=== PATIENT | female | born 1985 | race Caucasian/White ===

== ENCOUNTER 2018-07-23 15:39 | Observation (INO) ==
--- NOTE | 2018-07-23 16:11 | Emergency Department Note ---
Disposition Clinical Impression: Transaminitis, Epigastric pain Disposition: Admitted As Inpatient Condition: Good Referrals: Neymar Coronel MD [Primary Care Provider] - Forms: ED Satisfaction Letter, Work/School Release Time of Disposition: 18:46 General Adult HPI - General Chief complaint: ED Abdominal Pain Stated complaint: ABD Pain Time Seen by Provider: 07/23/18 15:46 Source: patient Limitations: no limitations Nursing Notes Reviewed: Yes Vital Signs Reviewed: Yes - History of Present Illness HPI Narrative: Pt states that 5 days ago she had a fullness feeling in her epigastric area. Which turned into a nauseated feeling. She reports a high temp of 102.1 5 days ago. This resolved with ibuprophen. NO vomiting. Has tried tums and pepto bismol to help with the pain with no relief. Has not had an antiemetic. Has not checked her temp since. Had her gallbladder removed in Sep 2017. NO other abdominal surgeries. She does report occasional Tylenol use but none recently. She is a daycare worker. Has never had hepatitis before. She has been able to eat and drink however she states that she is nauseated so she has not really wanted to. Denies any constipation. Denies any chest pain or shortness of breath. No rashes. Further in a conversation she does report that she stopped an itching sensation to her skin. She did notice that her urine is dark. However she does not have any dysuria or hematuria. No blood in her stool. No swelling to extremities. Pain Scale: 5 - Related Data Home Medications Medication Instructions Recorded Confirmed Venlafaxine HCl [Venlafaxine HCl 75 mg PO HS 09/25/17 09/25/17 ER] Cetirizine HCl [All Day Allergy] 10 mg PO DAILY PRN 07/23/18 07/23/18 Allergies Allergy/AdvReac Type Severity Reaction Status Date / Time No Known Allergies Allergy Verified 07/23/18 18:06 All systems ED: reviewed and negative except as stated. Review of Systems: As Per HPI Constitutional: Reports: fever (occasional, last fever was 5 days ago) Cardiovascular: Denies: chest pain, syncope Respiratory: Denies: cough, dyspnea Gastrointestinal: Reports: abdominal pain (epigastric), nausea. Denies: vomiting, diarrhea, hematemesis, melena, hematochezia Genitourinary: Denies: urgency, dysuria, frequency Musculoskeletal: Denies: back pain, neck pain Integumentary: Reports: pruritus. Denies: rash Neurological: Denies: headache Past Medical History - Past Medical History Attestation: Yes The following information was validated with the patient. Source: patient Medical history: Reports: no medical history Surgical history: Reports: cholecystectomy Psychiatric history: Reports: anxiety - Social History Smoking Status: Never smoker Smokeless Tobacco Status: No Alcohol use: Reports: occasionally Drug use: Reports: none Physical Exam - General Limitations: no limitations General appearance: alert, in no apparent distress - Head Head exam: atraumatic, normocephalic, normal inspection - Eye Eye exam: Present: normal appearance, PERRL, EOMI - ENT ENT exam: normal exam, normal oropharynx, mucous membranes moist - Neck Neck exam: Present: normal inspection, full ROM, trachea midline - Chest Chest inspection: Present: normal inspection, symmetric chest wall rise. Absent : tenderness - Respiratory Respiratory exam: Present: normal lung sounds bilaterally. Absent: respiratory distress, accessory muscle use - Cardiovascular Cardiovascular exam: Present: regular rate, normal rhythm, normal heart sounds - Abdominal Exam Abdominal exam: Present: soft, tenderness (epigastric). Absent: distention, guarding, rebound, rigidity, organomegaly, May's sign, Rovsing's sign, tenderness at McBurney's Point - Extremities Exam Extremities exam: Present: normal inspection, full ROM, normal capillary refill. Absent: tenderness, pedal edema - Neurological Exam Neurological exam: Present: alert, oriented X3 - Psychiatric Psychiatric exam: Present: normal affect, normal mood - Skin Skin exam: Present: warm, dry, intact, normal color. Absent: rash, cyanosis Course Course Narrative: Patient is well-appearing resting in bed. She does have some mild epigastric tenderness on palpation. No overt May sign. She is not jaundiced. She denies any actual vomiting. She has not had any relief of her symptoms with Pepto or Tums. Patient has no urinary symptoms other than she has dark urine. We will get basic labs on the patient and provide her with a GI cocktail to help with her epigastric pain. She states that she has taken medication for peptic ulcer disease before. - Reevaluation(s) Reevaluation #1: Patient does have elevated liver enzymes. We are getting a CT of patient's abdomen at this time. She is agreeable with this. She denies any excessive Tylenol use. She states she will occasionally use this however none recent. 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 Time: 17:15 - Consultations Consultation #1: I spoke with Dr. WEBB. He expressed concern for a viral hepatitis. The final hepatic panel has are even ordered. He is agreeable for reconsultation if an ERCP is needed and viral panel was negative. Time: 18:22 Consultation #2: Hospitalist accepted patient in stable condition. Time: 18:27 Vital Signs Temperature 98.1 F 07/23/18 15:41 Pulse Rate 74 07/23/18 15:41 Respiratory Rate 14 07/23/18 15:41 Blood Pressure 150/87 07/23/18 15:41 O2 Sat by Pulse Oximetry 100 07/23/18 15:41 Temperature 98.1 F 07/23/18 15:41 Pulse Rate 65 07/23/18 17:26 Respiratory Rate 20 07/23/18 17:26 Blood Pressure 129/81 07/23/18 17:26 O2 Sat by Pulse Oximetry 100 07/23/18 17:26 Oxygen Delivery Oxygen Delivery Room Air Medical Decision Making - Medical Records Medical records reviewed: Yes I reviewed the patient's medical records. - Lab Data Lab results reviewed: Yes I reviewed the patient's lab results. Result diagrams: 07/23/18 16:21 07/23/18 16:21 Lab Results 07/23/18 07/23/18 07/23/18 Range/Units 15:35 15:55 16:21 WBC 3.1 L (4.3-11.1) K/mcL RBC 4.06 (3.82-4.97) M/mcL Hgb 11.3 L (11.5-15.4) g/dL Hct 35.7 (35.3-44.9) % MCV 87.9 (83.0-100.0) fL MCH 27.8 L (28.0-33.3) pg MCHC 31.7 (31.6-35.5) g/dL RDW 12.7 (11.5-14.5) % Plt Count 189 (140-400) K/mcL MPV 11.6 (9.4-12.4) fL Seg Neutrophils % 38.0 % Lymphocytes % 58.0 % Monocytes % 4.0 % Neutrophils # 1.2 L (1.6-8.9) K/mcL Lymphocytes # 1.8 (0.6-4.6) K/mcL Monocytes # 0.1 (0.0-1.3) K/mcL Reactive Lymphocytes Present A (Not Present) Platelet Estimate Normal (Normal) Sodium (136-145) mEq/L Potassium (3.5-5.1) mEq/L Chloride (98-107) mEq/L Carbon Dioxide (23-29) mEq/L BUN (6-20) mg/dL Creatinine (0.60-1.20) mg/dL Est GFR ( Amer) (> 60) Est GFR (Non-Af Amer) (> 60) BUN/Creatinine Ratio (6-26) Glucose (70-105) mg/dL Calculated Osmolality (280-300) Calcium (8.6-10.3) mg/dL Total Bilirubin (0.3-1.0) mg/dL AST (13-39) Units/L ALT (7-52) Units/L Alkaline Phosphatase (34-104) Units/L Troponin I (< 0.04) ng/mL Serum Total Protein (6.4-8.9) g/dL Albumin (3.5-5.7) g/dL Globulin (2.4-3.5) g/dL Albumin/Globulin Ratio (1.1-2.2) Lipase (11-82) Units/L Urine Color Dark Yellow (Yellow) Urine Clarity Clear (Clear) Urine pH 6.5 (5.0-8.0) pH Units Ur Specific [place] 1.019 (1.010-1.025) Urine Protein Negative (Neg-Trace) mg/dL Urine Glucose (UA) Normal (Normal) mg/dL Urine Ketones Negative (Negative) mg/dL Urine Blood Negative (Negative) Urine Nitrite Negative (Negative) Urine Bilirubin Moderate H (Negative) Urine Urobilinogen Normal (Normal) mg/dL Ur Leukocyte Esterase Moderate H (Negative) Urine Microscopic RBC 0-3 (0-3) per hpf Urine Microscopic WBC 3-5 H (0-3) per hpf Ur Squamous Epith Cells Many H (None-Few) per lpf Urine Bacteria None Seen (None-Few) per hpf Hyaline Casts None Seen (None-Few) per lpf Ur Culture Indicated? NO. A (NO) Urine Test Negative (Negative) Hep Bs Antigen (Nonreactive) 07/23/18 07/23/18 Range/Units 16:21 16:21 WBC (4.3-11.1) K/mcL RBC (3.82-4.97) M/mcL Hgb (11.5-15.4) g/dL Hct (35.3-44.9) % MCV (83.0-100.0) fL MCH (28.0-33.3) pg MCHC (31.6-35.5) g/dL RDW (11.5-14.5) % Plt Count (140-400) K/mcL MPV (9.4-12.4) fL Seg Neutrophils % % Lymphocytes % % Monocytes % % Neutrophils # (1.6-8.9) K/mcL Lymphocytes # (0.6-4.6) K/mcL Monocytes # (0.0-1.3) K/mcL Reactive Lymphocytes (Not Present) Platelet Estimate (Normal) Sodium 136 (136-145) mEq/L Potassium 3.8 (3.5-5.1) mEq/L Chloride 104 (98-107) mEq/L Carbon Dioxide 26 (23-29) mEq/L BUN 7 (6-20) mg/dL Creatinine 0.74 (0.60-1.20) mg/dL Est GFR ( Amer) > 60 (> 60) Est GFR (Non-Af Amer) > 60 (> 60) BUN/Creatinine Ratio 9 (6-26) Glucose 92 (70-105) mg/dL Calculated Osmolality 280 (280-300) Calcium 9.0 (8.6-10.3) mg/dL Total Bilirubin 2.3 H (0.3-1.0) mg/dL AST 2201 H (13-39) Units/L ALT > 500 H (7-52) Units/L Alkaline Phosphatase 166 H (34-104) Units/L Troponin I < 0.03 (< 0.04) ng/mL Serum Total Protein 7.2 (6.4-8.9) g/dL Albumin 3.9 (3.5-5.7) g/dL Globulin 3.3 (2.4-3.5) g/dL Albumin/Globulin Ratio 1.2 (1.1-2.2) Lipase 22 (11-82) Units/L Urine Color (Yellow) Urine Clarity (Clear) Urine pH (5.0-8.0) pH Units Ur Specific [place] (1.010-1.025) Urine Protein (Neg-Trace) mg/dL Urine Glucose (UA) (Normal) mg/dL Urine Ketones (Negative) mg/dL Urine Blood (Negative) Urine Nitrite (Negative) Urine Bilirubin (Negative) Urine Urobilinogen (Normal) mg/dL Ur Leukocyte Esterase (Negative) Urine Microscopic RBC (0-3) per hpf Urine Microscopic WBC (0-3) per hpf Ur Squamous Epith Cells (None-Few) per lpf Urine Bacteria (None-Few) per hpf Hyaline Casts (None-Few) per lpf Ur Culture Indicated? (NO) Urine Test (Negative) Hep Bs Antigen Nonreactive (Nonreactive) - Radiology Data Radiology results reviewed: Yes I reviewed the patient's radiology results. Chest X-Ray 07/23/18 16:11 IMPRESSION: Negative chest radiographs. D/ / 07/23/2018 17:08:42 Eddie Machado MD / [facility] Interpreting Provider: Eddie Machado MD - EKG Data EKG #1 EKG attestation: Yes I reviewed and interpreted this EKG. EKG results narrative: Sinus bradycardia at a rate of 55. PA interval is 156. QRS duration is 90. QT is 408. QTC is 391. No signs of acute ischemia. Previous EKG dated 2016 shows no significant deviation from the recent EKG.
--- NOTE | 2018-07-23 16:24 | Emergency Department Note ---
Disposition Clinical Impression: Transaminitis, Epigastric pain Disposition: Admitted As Inpatient Referrals: Neymar Coronel MD [Primary Care Provider] - Forms: ED Satisfaction Letter, Work/School Release General Adult HPI - General Chief complaint: ED Abdominal Pain Stated complaint: ABD Pain Time Seen by Provider: 07/23/18 15:46 Source: patient Limitations: no limitations - History of Present Illness Pain Scale: 5 - Related Data Home Medications Medication Instructions Recorded Confirmed SUMAtriptan succinate [Imitrex] 25 mg PO AD PRN 09/25/17 09/25/17 Venlafaxine HCl [Venlafaxine HCl 75 mg PO HS 09/25/17 09/25/17 ER] Venlafaxine HCl [Venlafaxine HCl 150 mg PO HS 09/25/17 09/25/17 ER] hydrOXYzine HCl [Hydroxyzine HCl] 25 mg PO Q8H PRN 09/25/17 09/25/17 Previous Rx's Medication Instructions Recorded OxyCODONE/APAP 10/325 [Percocet 1 each PO Q6HR PRN #24 tablet 09/25/17 10/325 MG] Allergies Allergy/AdvReac Type Severity Reaction Status Date / Time No Known Allergies Allergy Verified 09/25/17 07:55 Past Medical History - Past Medical History Medical history: Reports: no medical history Psychiatric history: Reports: anxiety - Social History Smoking Status: Never smoker Smokeless Tobacco Status: No Alcohol use: Reports: occasionally Drug use: Reports: none Physical Exam - General Limitations: no limitations General appearance: alert, in no apparent distress Course Vital Signs Temperature 98.1 F 07/23/18 15:41 Pulse Rate 74 07/23/18 15:41 Respiratory Rate 14 07/23/18 15:41 Blood Pressure 150/87 07/23/18 15:41 O2 Sat by Pulse Oximetry 100 07/23/18 15:41 Temperature 98.1 F 07/23/18 15:41 Pulse Rate 65 07/23/18 17:26 Respiratory Rate 20 07/23/18 17:26 Blood Pressure 129/81 07/23/18 17:26 O2 Sat by Pulse Oximetry 100 07/23/18 17:26 Oxygen Delivery Oxygen Delivery Room Air Medical Decision Making - Lab Data Result diagrams: 07/23/18 16:21 07/23/18 16:21 Lab Results 07/23/18 07/23/1807/23/18 Range/Units 15:35 15:55 16:21 WBC 3.1 L (4.3-11.1) K/mcL RBC 4.06 (3.82-4.97) M/mcL Hgb 11.3 L (11.5-15.4) g/dL Hct 35.7 (35.3-44.9) % MCV 87.9 (83.0-100.0) fL MCH 27.8 L (28.0-33.3) pg MCHC 31.7 (31.6-35.5) g/dL RDW 12.7 (11.5-14.5) % Plt Count 189 (140-400) K/mcL MPV 11.6 (9.4-12.4) fL Seg Neutrophils % 38.0 % Lymphocytes % 58.0 % Monocytes % 4.0 % Neutrophils # 1.2 L (1.6-8.9) K/mcL Lymphocytes # 1.8 (0.6-4.6) K/mcL Monocytes # 0.1 (0.0-1.3) K/mcL Reactive Lymphocytes Present A (Not Present) Platelet Estimate Normal (Normal) Sodium (136-145) mEq/L Potassium (3.5-5.1) mEq/L Chloride (98-107) mEq/L Carbon Dioxide (23-29) mEq/L BUN (6-20) mg/dL Creatinine (0.60-1.20) mg/dL Est GFR ( Amer) (> 60) Est GFR (Non-Af Amer) (> 60) BUN/Creatinine Ratio (6-26) Glucose (70-105) mg/dL Calculated Osmolality (280-300) Calcium (8.6-10.3) mg/dL Total Bilirubin (0.3-1.0) mg/dL AST (13-39) Units/L ALT (7-52) Units/L Alkaline Phosphatase (34-104) Units/L Troponin I (< 0.04) ng/mL Serum Total Protein (6.4-8.9) g/dL Albumin (3.5-5.7) g/dL Globulin (2.4-3.5) g/dL Albumin/Globulin Ratio (1.1-2.2) Lipase (11-82) Units/L Urine Color Dark Yellow (Yellow) Urine Clarity Clear (Clear) Urine pH 6.5 (5.0-8.0) pH Units Ur Specific [place] 1.019 (1.010-1.025) Urine Protein Negative (Neg-Trace) mg/dL Urine Glucose (UA) Normal (Normal) mg/dL Urine Ketones Negative (Negative) mg/dL Urine Blood Negative (Negative) Urine Nitrite Negative (Negative) Urine Bilirubin Moderate H (Negative) Urine Urobilinogen Normal (Normal) mg/dL Ur Leukocyte Esterase Moderate H (Negative) Urine Microscopic RBC 0-3 (0-3) per hpf Urine Microscopic WBC 3-5 H (0-3) per hpf Ur Squamous Epith Cells Many H (None-Few) per lpf Urine Bacteria None Seen (None-Few) per hpf Hyaline Casts None Seen (None-Few) per lpf Ur Culture Indicated? NO. A (NO) Urine Test Negative (Negative) 07/23/18 Range/Units 16:21 WBC (4.3-11.1) K/mcL RBC (3.82-4.97) M/mcL Hgb (11.5-15.4) g/dL Hct (35.3-44.9) % MCV (83.0-100.0) fL MCH (28.0-33.3) pg MCHC (31.6-35.5) g/dL RDW (11.5-14.5) % Plt Count (140-400) K/mcL MPV (9.4-12.4) fL Seg Neutrophils % % Lymphocytes % % Monocytes % % Neutrophils # (1.6-8.9) K/mcL Lymphocytes # (0.6-4.6) K/mcL Monocytes # (0.0-1.3) K/mcL Reactive Lymphocytes (Not Present) Platelet Estimate (Normal) Sodium 136 (136-145) mEq/L Potassium 3.8 (3.5-5.1) mEq/L Chloride 104 (98-107) mEq/L Carbon Dioxide 26 (23-29) mEq/L BUN 7 (6-20) mg/dL Creatinine 0.74 (0.60-1.20) mg/dL Est GFR ( Amer) > 60 (> 60) Est GFR (Non-Af Amer) > 60 (> 60) BUN/Creatinine Ratio 9 (6-26) Glucose 92 (70-105) mg/dL Calculated Osmolality 280 (280-300) Calcium 9.0 (8.6-10.3) mg/dL Total Bilirubin 2.3 H (0.3-1.0) mg/dL AST 2201 H (13-39) Units/L ALT > 500 H (7-52) Units/L Alkaline Phosphatase 166 H (34-104) Units/L Troponin I < 0.03 (< 0.04) ng/mL Serum Total Protein 7.2 (6.4-8.9) g/dL Albumin 3.9 (3.5-5.7) g/dL Globulin 3.3 (2.4-3.5) g/dL Albumin/Globulin Ratio 1.2 (1.1-2.2) Lipase 22 (11-82) Units/L Urine Color (Yellow) Urine Clarity (Clear) Urine pH (5.0-8.0) pH Units Ur Specific [place] (1.010-1.025) Urine Protein (Neg-Trace) mg/dL Urine Glucose (UA) (Normal) mg/dL Urine Ketones (Negative) mg/dL Urine Blood (Negative) Urine Nitrite (Negative) Urine Bilirubin (Negative) Urine Urobilinogen (Normal) mg/dL Ur Leukocyte Esterase (Negative) Urine Microscopic RBC (0-3) per hpf Urine Microscopic WBC (0-3) per hpf Ur Squamous Epith Cells (None-Few) per lpf Urine Bacteria (None-Few) per hpf Hyaline Casts (None-Few) per lpf Ur Culture Indicated? (NO) Urine Test (Negative) Attestation Statement - Attestation Attestation: I examined this patient and my medical decision-making was reviewed with the Resident Physician. I agree with the documented findings, disposition and treatment plan as described except to the extent set forth below. 32-year-old female presented to the emergency room for epigastric abdominal pain. Onset on Friday. Intermittent. History of cholecystectomy. She states that she has had fevers up to 102 as well. She denies urine symptoms. No cough or sputum production. She denies chest pain. Pain is isolated to the epigastric region. We will check screening lab work on her as well as a screening urine and chest x-ray as she could be getting referred abdominal pain. Possible CT scan abdomen and pelvis as well. She looks well on exam. Her vitals are stable. She is afebrile.
[2018-07-23 16:39] LABS: Clarity,Urine Clear (Clear); Color,Urine Dark Yellow (Yellow); Glucose,Urine (UA) Normal (Normal)
[2018-07-23 16:40] LABS: Bilirubin,Urine Moderate (Negative); Blood,Urine Negative (Negative); Ketones,Urine Negative (Negative); Leukocyte Esterase,Urine Moderate (Negative); Nitrite,Urine Negative (Negative); PH,Urine 6.5 pH Units (5.0-8.0); Protein,Urine Negative (Neg-Trace); Specific Gravity,Urine 1.019 (1.010-1.025); Urobilinogen,Urine Normal (Normal)
[2018-07-23 16:48] LABS: Hematocrit 35.7 % (35.3-44.9); Hemoglobin 11.3 g/dL (11.5-15.4); Mean Corpuscular HGB Conc 31.7 g/dL (31.6-35.5); Mean Corpuscular Hemoglobin 27.8 pg (28.0-33.3); Mean Corpuscular Volume 87.9 fL (83.0-100.0); Mean Platelet Volume 11.6 fL (9.4-12.4); Platelet Count 189 K/mcL (140-400); Red Blood Count 4.06 M/mcL (3.82-4.97); Red Cell Distribution Width 12.7 % (11.5-14.5)
[2018-07-23 17:03] LABS: Bacteria,Urine None Seen per hpf (None-Few); Hyaline Casts,Urine None Seen per lpf (None-Few); RBC,Urine 0-3 per hpf (0-3); Squamous Epithelial Cell,Urine Many per lpf (None-Few)
[2018-07-23 17:11] LABS: Alanine Aminotransferase > 500 Units/L (7-52); Albumin 3.9 g/dL (3.5-5.7); Albumin/Globulin Ratio 1.2 (1.1-2.2); Alkaline Phosphatase 166 Units/L (34-104); Aspartate Amino Transferase 2201 Units/L (13-39); BUN/Creatinine Ratio 9 (6-26); Bilirubin,Total 2.3 mg/dL (0.3-1.0); Blood Urea Nitrogen 7 mg/dL (6-20); Carbon Dioxide 26 mEq/L (23-29); Chloride 104 mEq/L (98-107); Globulin 3.3 g/dL (2.4-3.5); Glucose 92 mg/dL (70-105); Lipase 22 Units/L (11-82); Osmolality,Calculated 280 (280-300); Potassium 3.8 mEq/L (3.5-5.1); Sodium 136 mEq/L (136-145); Total Protein 7.2 g/dL (6.4-8.9); Troponin I < 0.03 ng/mL (< 0.04); eGFR For Non-African Americans > 60 (> 60)
[2018-07-23 17:35] LABS: Lymphocytes # 1.8 K/mcL (0.6-4.6); Monocytes # 0.1 K/mcL (0.0-1.3); Neutrophils # 1.2 K/mcL (1.6-8.9); Platelet Estimate Normal (Normal); Reactive Lymphocytes Present (Not Present)
[2018-07-23] MEDS ORDERED: methylPREDNISolone 125 MG/2 ML VIAL IVP ONE (17:50)
[2018-07-23 18:41] LABS: Hepatitis B Surface Antigen Nonreactive (Nonreactive)
[2018-07-23] MEDS ORDERED: Ondansetron 4 MG/2 ML VIAL IVP ONE (19:11)
[2018-07-23] MEDS ORDERED: Naloxone 0.4 MG/ML INJ IVP PRN (19:24)
[2018-07-23 19:25] LABS: Acetaminophen < 10 mcg/mL (10-20)
--- NOTE | 2018-07-23 19:32 | Internal Med History&Physical ---
Date of Encounter: 07/23/18 Time of Encounter: 08:30 Internal Medicine - H&P: HPI Chief complaint: Epigastric Pain History of present illness: Ms. Kamara is a 32 year old female with PMH of Cholecystectomy (09/28) who presents with a cheif complaint of abdominal pain. Symptoms began last Friday with onset of epigastric fullness. However she states the pain began yesterday which she describes as a squeezing sensation that is nonradiating, aggravated by deep inspiration and bending over. No association with food though she has been nauseous. No vomiting. She also notes fevers and chills and states that she checked her temperature on Friday and found to be 102.1. Patient does state that she has been taking ibuprofen more frequently over the past 2 months. She takes approximately 2-3 pills almost daily as needed for headaches. Patient denies any blood in her stool or dark-appearing stools. Denies any dizziness or lightheadedness. No recent antibiotic use prior to symptom onset though she did state she took 1 tablet of Omnicef last night. She has noted generalized itching of her skin since Friday and has noted to have dark-appearing urine. Denies any IV drug abuse. She does drink 1 beer a night though not consistently. 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 Patient however denies any diarrhea. No reports of liver disease in her family. Past Med Surg Social Fam HX - Past Medical History Medical history: no medical history Psychiatric history: anxiety - Past Surgical History Surgical History: cholecystectomy - Social History Smoking Status: Never smoker Smokeless Tobacco Status: No Alcohol use: occasionally Drug use: none Internal Medicine - H&P: Meds Venlafaxine HCl [Venlafaxine HCl ER] 75 mg PO HS 09/25/17 [History] Cetirizine HCl [All Day Allergy] 10 mg PO DAILY PRN 07/23/18 [History] 3 Allergy/AdvReac Type Severity Reaction Status Date / Time No Known Allergies Allergy Verified 07/23/18 18:06 All Systems PM: A 10-system review of systems was performed and is negative for pertinent findings except as documented above in the HPI. - Constitutional Constitutional: no chills, no fever(s), no night sweats - EENT Eyes: no change in vision, no discharge, no pain, no photophobia Ears: no ear discharge, no ear pain, no tinnitus Nose, mouth and throat: no dysphagia, no nasal discharge, no neck pain, no sore throat - Cardiovascular Cardiovascular ROS IM: no chest pain, no diaphoresis, no dyspnea, no lightheadedness, no palpitations, no syncope - Respiratory Respiratory: no cough, no dyspnea, no wheezing, no excessive phlegm production - Gastrointestinal Gastrointestinal: no abdominal pain, no diarrhea, no hematemesis, no hematochezia, no melena, no nausea, no vomiting - Genitourinary Genitourinary: no change in urinary stream, no dysuria, no flank pain, no hematuria - Musculoskeletal Musculoskeletal ROS IM: no numbness, no tingling - Integumentary Integumentary IM: no rash, no unusual bruising - Neurological Neurological ROS: no confusion, no convulsions, no focal weakness, no numbness, no tingling, no tremor(s) - Hematologic/Lymphatic Hematologic/Lymphatic: no easy bruising - Constitutional Vitals: Temp Pulse Resp BP Pulse Ox 98.1 F 65 16 126/74 100 07/23/18 15:41 07/23/18 19:10 07/23/18 19:10 07/23/18 19:10 07/23/18 19:10 Exam: General: Alert and oriented 3; lying in bed in no acute distress Skin:Normal color, no rash, no lesions. HEENT:EOM, pupils equal, round and reactive. Sclera anicteric Cardiovascular:Normal S1 & S2, no rubs, murmurs or gallops. No JVD. Pulse regular. Lungs:Normal breath sounds, no wheezes or crackles. Abdomen:Soft, right upper quadrant tenderness with positive May sign, positive bowel sounds no rigidity. Extremities:No deformity, no edema or tenderness, no joint swelling or clubbing. Neurological:Normal cognition and motor skills. Pulses:Carotid and radial pulses normal +2. Rest of the physical exam is non contributory Internal Med - H&P Results - Labs CBC & Chem 7: 07/23/18 16:21 07/23/18 16:21 Labs: Short CBC 07/23/18 Range/Units 16:21 WBC 3.1 L (4.3-11.1) K/mcL Hgb 11.3 L (11.5-15.4) g/dL Hct 35.7 (35.3-44.9) % Plt Count 189 (140-400) K/mcL Neutrophils # 1.2 L (1.6-8.9) K/mcL BMP 07/23/18 16:21 Sodium 136 Potassium 3.8 Chloride 104 Carbon Dioxide 26 BUN 7 Creatinine 0.74 Glucose 92 Calcium 9.0 Cardiac Enzymes 07/23/18 Range/Units 16:21 Troponin I < 0.03 (< 0.04) ng/mL Liver Function 07/23/18 Range/Units 16:21 Total Bilirubin 2.3 H (0.3-1.0) mg/dL AST 2201 H (13-39) Units/L ALT > 500 H (7-52) Units/L Alkaline Phosphatase 166 H (34-104) Units/L Albumin 3.9 (3.5-5.7) g/dL Urine 07/23/18 Range/Units 15:35 Urine Color Dark Yellow (Yellow) Urine Clarity Clear (Clear) Urine pH 6.5 (5.0-8.0) pH Units Ur Specific [place] 1.019 (1.010-1.025) Urine Protein Negative (Neg-Trace) mg/dL Urine Glucose (UA) Normal (Normal) mg/dL - Impressions ITS Impressions Chest X-Ray 07/23/18 16:11 IMPRESSION: Negative chest radiographs. D/ / 07/23/2018 17:08:42 Eddie Machado MD / [facility] Interpreting Provider: Eddie Machado MD Abdomen/Pelvis CT 07/23/18 16:34 IMPRESSION: 1. No acute intra-abdominal or intrapelvic process. 2. No urinary stones or hydronephrosis. 3. Patient status post cholecystectomy with mild fat stranding within the gallbladder fossa and right subhepatic space, most likely postoperative in etiology. However, there is no evidence of a postop fluid collection to suggest a biloma or abscess. Clinical correlation is advised. D/ / 07/23/2018 17:48:32 Eddie Hoang MD / [facility] Interpreting Provider: Eddie Hoang MD - Assessment and plan (1) Epigastric pain Current Visit: Yes Status: Acute Assessment and plan: Epigastric/RUQ pain with possible positive May sign, abnormal LFTs; reports of dark urine with positive urine bilirubin and generalized itching of the skin. Concern for an acute hepatitis versus biliary disease. Though given history of NSAID use cannot rule out a concomitant peptic ulcer disease versus gastritis. No evidence of pancreatitis. CT of the abdomen shows no acute intra -abdominal or intrapelvic process with mild fat stranding within the gallbladder fossa most likely postoperative. Patient currently stable nonseptic appearing. We will obtain MRCP. Follow-up hepatitis panel. We will continue supportive care for now. Hemoccult testing. Does not appear to need emergent ERCP. GI consult in the morning. (2) Transaminitis Current Visit: Yes Status: Acute Assessment and plan: Transaminitis with hyperbilirubinemia. Concerning for viral hepatitis. Biliary disease is also another possibility. Continue supportive care. Patient currently stable does not appear septic. We will obtain viral hepatitis panel and MRCP in the morning. Hold patient's Effexor due to potential for hepatotoxicity. GI consult. (3) DVT prophylaxis Current Visit: Yes Status: Acute - Time Spent With Patient Total time spent is greater than 50% in coordination of care (as documented) at patient's floor/unit and/or counseling patient:
[2018-07-23] MEDS ORDERED: *HR* Promethazine 25 MG/ML VIAL IVP PRN (20:10)
[2018-07-24 01:17] LABS: Hepatitis B Core IgM Nonreactive (Nonreactive); Hepatitis C Virus Antibody Nonreactive (Nonreactive)
[2018-07-24 01:25] LABS: Hepatitis A Antibody IgM Reactive (Nonreactive)
[2018-07-24] MEDS: *HR* Heparin 5,000 UNIT/ML VIAL SQ SCH ×4 (01:34→20:04)
[2018-07-24 02:03] LABS: Basophils % 0.7 %; Hematocrit 37.4 % (35.3-44.9); Hemoglobin 12.1 g/dL (11.5-15.4); Immature Granulocytes % 0.3 % (0-4); Lymphocytes # 1.1 K/mcL (0.6-4.6); Lymphocytes % 38.1 %; Mean Corpuscular HGB Conc 32.4 g/dL (31.6-35.5); Mean Corpuscular Hemoglobin 28.5 pg (28.0-33.3); Mean Platelet Volume 11.6 fL (9.4-12.4); Monocytes # 0.2 K/mcL (0.0-1.3); Monocytes % 7.6 %; Neutrophils # 1.5 K/mcL (1.6-8.9); Platelet Count 181 K/mcL (140-400); Red Blood Count 4.25 M/mcL (3.82-4.97); Red Cell Distribution Width 12.8 % (11.5-14.5); Segmented Neutrophils % 52.3 %
[2018-07-24 02:04] LABS: INR 1.1; Prothrombin Time 12.2 Seconds (9.4-12.1)
[2018-07-24] MEDS: 0.9 % Sodium Chloride 1,000 ML IVC SCH ×2 (02:15→14:47)
[2018-07-24 02:23] LABS: Alanine Aminotransferase > 500 Units/L (7-52); Albumin 3.4 g/dL (3.5-5.7); Albumin/Globulin Ratio 1.1 (1.1-2.2); Alkaline Phosphatase 156 Units/L (34-104); Aspartate Amino Transferase 2101 Units/L (13-39); BUN/Creatinine Ratio 9 (6-26); Bilirubin,Total 2.7 mg/dL (0.3-1.0); Blood Urea Nitrogen 6 mg/dL (6-20); Calcium 8.6 mg/dL (8.6-10.3); Carbon Dioxide 22 mEq/L (23-29); Chloride 107 mEq/L (98-107); Globulin 3.2 g/dL (2.4-3.5); Glucose 90 mg/dL (70-105); Osmolality,Calculated 281 (280-300); Potassium 3.4 mEq/L (3.5-5.1); Sodium 137 mEq/L (136-145); Total Protein 6.6 g/dL (6.4-8.9); eGFR For Non-African Americans > 60 (> 60)
[2018-07-24 02:53] LABS: Platelet Estimate Normal (Normal)
--- NOTE | 2018-07-24 10:18 | Gastroenterology Consult Note ---
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 Recommend supportive care, monitor LFTs. Pt was advised contact precautions to avoid transmission. Qualifiers: Hepatic coma status: without hepatic coma Qualified Code(s): B15.9 - Hepatitis A without hepatic coma (2) Transaminitis Status: Acute Assessment and plan: Likely due to Hep A, monitor labs (3) Epigastric pain Status: Acute - Time Spent With Patient Total time spent is greater than 50% in coordination of care (as documented) at patient's floor/unit and/or counseling patient: GI History of Present Illness - Data of Consult Patient: new to practice Consult date: 07/24/18 Requesting Physician: Erik Munroe MD - Consult Narrative Reason for consult: transamanitis History of present illness: Ms. Kamara is a 32 year old female with PMH of Cholecystectomy (09/28) who presents with a chief complaint of abdominal pain. Symptoms began last Friday with onset of epigastric fullness. However she states the pain began yesterday which she describes as a squeezing sensation that is nonradiating, aggravated by deep inspiration and bending over. No association with food. She complains of nausea without vomiting. She also notes fevers and chills and states that she checked her temperature on Friday and found to be 102.1. She admits to taking ibuprofen more frequently over the past 2 months. She takes approximately 2-3 pills almost daily as needed for headaches. Patient denies any blood in her stool or dark-appearing stools. Denies any dizziness or lightheadedness. No recent antibiotic use prior to symptom onset. She has noted generalized itching of her skin since Friday and has noted to have dark-appearing urine. Labs showed elevated LFTs, she was positive for hepatitis A. Denies any IV drug abuse present or in the past. She does drink 1 beer a night though not consistently. 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 Patient however denies any diarrhea. No reports of liver disease in her family. CT abdomen shows status post cholecystectomy with mild inflammatory fat stranding within the gallbladder fossa and within the subphrenic space, most likely postop in etiology. There is no evidence of a fluid collection, abscess, or biloma. She does admit to eating out frequently and has [employer] for lunch several times a week. She denies any known exposure to anyone with hepatitis A. Past Med Surg Social Fam HX - Past Medical History Medical history: no medical history Psychiatric history: anxiety - Past Surgical History Surgical History: cholecystectomy - Social History Smoking Status: Never smoker Smokeless Tobacco Status: No Alcohol use: occasionally Drug use: none - Family History Father Living Status: Still Living Mother Living Status: Still Living Hx Family Cardiac Disorders: Yes (afib) Hx Family Endocrine Disorder: Yes (rheumatoid arthritis) Review of Systems: GI: as per [facility] GENERAL: fever and chills EYES: denies yellow discoloration ENT: denies pain with swallowing or difficulty swallowing CARDIO: denies chest pain, palpitations RESP: No Shortness of breath with exertion : reports dark orange urine NEURO: denies any weakness HEME: Denies any bruising MS: denies joint pain, joint swelling or back pain. DERM: denies rash or itching PSYCH: Denies history of anxiety or depression - Constitutional Vitals: Temp Pulse Resp BP Pulse Ox 98.4 F 76 16 107/67 97 07/24/18 07:01 07/24/18 07:01 07/24/18 07:01 07/24/18 07:01 07/24/18 07:01 Exam: CONSTITUTIONAL:~alert, no acute distress.~HEAD:~normocephalic.~EYES:~no jaundice.~NECK:~no obvious swelling.~HEART:~regular rate and rhythm, no murmurs.~LUNGS:~bilateral good air entry.~ABDOMEN:~non distended, soft, tender epigastric area, no masses pulpable, no organomegaly.~RECTAL EXAM:~Deferred.~EXTREMITIES:~no clubbing, cyanosis or edema.~SKIN:~no stigmata of chronic liver disease.~NEUROLOGIC:~no obvious focal defect.~~~~ Results - Labs CBC & Chem 7: 07/24/18 01:12 07/24/18 01:12 Labs: Last Result Calcium 8.6 mg/dL (8.6-10.3) 07/24/18 01:12 Troponin I < 0.03 ng/mL (< 0.04) 07/23/18 16:21 Entire Visit Hgb 12.1 g/dL (11.5-15.4) 07/24/18 01:12 Hct 37.4 % (35.3-44.9) 07/24/18 01:12 PT 12.2 Seconds (9.4-12.1) H 07/24/18 01:12 Total Bilirubin 2.7 mg/dL (0.3-1.0) H 07/24/18 01:12 AST 2101 Units/L (13-39) H 07/24/18 01:12 ALT > 500 Units/L (7-52) H 07/24/18 01:12 Lipase 22 Units/L (11-82) 07/23/18 16:21 Acetaminophen < 10 mcg/mL (10-20) L 07/23/18 16:21 - ABG ABG results: PT/INR, D-dimer PT 12.2 Seconds (9.4-12.1) H 07/24/18 01:12 Consult Discharge Plan - Plan Additional Instructions: Return to the ER if you develop any worsening abdominal pain, nausea or vomiting. Referrals: Neymar Coronel MD [Primary Care Provider] - (in 1-2 weeks) <Jarrett Vega - Last Filed: 07/31/18 07:30> - Time Spent With Patient Total time spent is greater than 50% in coordination of care (as documented) at patient's floor/unit and/or counseling patient: GI History of Present Illness - Data of Consult Requesting Physician: Anibal Dietrich MD - Consult Narrative History of present illness: Ms. Kamara is a 32 year old female - Constitutional Vitals: Temp Pulse Resp BP Pulse Ox 98 F 57 16 110/71 96 07/25/18 07:51 07/25/18 07:51 07/25/18 07:51 07/25/18 07:51 07/25/18 07:51 Results - Labs CBC & Chem 7: 07/25/18 10:15 07/25/18 05:23 Labs: Last Result Calcium 8.6 mg/dL (8.6-10.3) 07/25/18 05:23 Troponin I < 0.03 ng/mL (< 0.04) 07/23/18 16:21 Entire Visit Hgb 12.5 g/dL (11.5-15.4) 07/25/18 10:15 Hct 40.0 % (35.3-44.9) 07/25/18 10:15 PT 12.6 Seconds (9.4-12.1) H 07/25/18 05:23 Total Bilirubin 3.7 mg/dL (0.3-1.0) H 07/25/18 05:23 AST 1861 Units/L (13-39) H 07/25/18 05:23 ALT > 500 Units/L (7-52) H 07/25/18 05:23 Lipase 22 Units/L (11-82) 07/23/18 16:21 Acetaminophen < 10 mcg/mL (10-20) L 07/23/18 16:21 - ABG ABG results: PT/INR, D-dimer PT 12.6 Seconds (9.4-12.1) H 07/25/18 05:23 - Attending Attestation Agree. Acute hepatitis A. Supportive care. No encephalopathy. I have personally performed a face to face evaluation on this patient. I have reviewed and agree with the care plan. History and Exam by me shows:
[2018-07-24] MEDS ORDERED: Ibuprofen 200 MG TABLET PO PRN (10:48)
--- NOTE | 2018-07-24 11:10 | Internal Med Progress Note ---
Hospitalist Progress Note - Encounter Date of Encounter: 07/24/18 Time of Encounter: 08:00 - Subjective Interval History: Patient seen and examined at bedside. Reports that abdominal pain has nearly resolved, denies nausea, vomiting, diarrhea. She denies being exposed to anyone with hepatitis A. But does report that she eats out frequently. No recent antibiotic use, denies stool color change, melena, hematemesis or hematochezia. Denies any fever or chills. Inquires about being able to eat. - Exam Vitals: Temp Pulse Resp BP Pulse Ox 98.4 F 76 16 107/67 97 07/24/18 07:01 07/24/18 07:01 07/24/18 07:01 07/24/18 07:01 07/24/18 07:01 Exam: General: Patient is alert, oriented, no acute distress, obese Head: atraumatic, normocephalic, Eye: normal appearance, PERRL, no scleral icterus, no conjunctival injection ENT: mucous membranes moist, normal external ear exam Neck: normal inspection, trachea midline, full ROM, no carotid bruits Chest: normal inspection, symmetric chest rise Respiratory: Good respiratory effort. Bilateral breath sounds are clear without wheezing, crackles, or rhonchi. Cardiovascular: Regular rate and rhythm. s1 and s2 No clicks, rubs, gallops, or murmors. Abdomen: Bowel sounds present normoactive x-4 quadrants. Abdomen is soft, nondistended. no Epigastric tenderness. No guarding or rebound. No organomegaly noted, obese, May sign is negative musculoskeletal: Spontaneously moving all extremities. no edema, no calf tenderness Skin: warm, dry, intact. Neuro: Alert and oriented x4. Sensation light touch intact. Cranial nerves 2- 12 is intact. Not aphasic, gait is steady, rapid hand movements intact, finger- to-nose intact, Psych: Patient's affect is normal - Assessment and Plan (1) Hepatitis A Current Visit: Yes Status: Acute Assessment and Plan: Acute hepatitis A infection. ASD 2201 has trended down to 2101 ALC more than 500 Alkaline phosphatase 166 trended down to 156 Bilirubin trended up from 2.3-2.7 INR within normal limit We will continue to monitor LFTs and coags GI on board will follow recommendations Started on clear liquid diet will increase diet as tolerated CT A/P IMPRESSION: 1. No acute intra-abdominal or intrapelvic process. 2. No urinary stones or hydronephrosis. 3. Patient status post cholecystectomy with mild fat stranding within the gallbladder fossa and right subhepatic space, most likely postoperative in etiology. However, there is no evidence of a postop fluid collection to suggest a biloma or abscess. Clinical correlation is advised. (2) Transaminitis Current Visit: Yes Status: Acute Assessment and Plan: secondary to above management as per above (3) Hypokalemia Current Visit: Yes Status: Acute Assessment and Plan: Replaceable follow BMP in the morning (4) DVT prophylaxis Current Visit: Yes Status: Acute Assessment and Plan: Subcutaneous heparin - Time Spent with Patient Total time spent is greater than 50% in coordination of care (as documented) at patient's floor/unit and/or counseling patient: Internal Medicine: Result - Labs CBC & Chem 7: 07/24/18 01:12 07/24/18 01:12 Labs: Short CBC 07/24/18 Range/Units 01:12 WBC 2.9 L (4.3-11.1) K/mcL Hgb 12.1 (11.5-15.4) g/dL Hct 37.4 (35.3-44.9) % Plt Count 181 (140-400) K/mcL Neutrophils # 1.5 L (1.6-8.9) K/mcL BMP 07/24/18 01:12 Sodium 137 Potassium 3.4 L Chloride 107 Carbon Dioxide 22 L BUN 6 Creatinine 0.68 Glucose 90 Calcium 8.6 Liver Function 07/24/18 Range/Units 01:12 Total Bilirubin 2.7 H (0.3-1.0) mg/dL AST 2101 H (13-39) Units/L ALT > 500 H (7-52) Units/L Alkaline Phosphatase 156 H (34-104) Units/L Albumin 3.4 L (3.5-5.7) g/dL - ABG Interpretation ABG results: PT/INR, D-dimer PT 12.2 Seconds (9.4-12.1) H 07/24/18 01:12 Consult Discharge Plan - Plan Referrals: Neymar Coronel MD [Primary Care Provider] - (1) Hepatitis A Qualifiers: Hepatic coma status: without hepatic coma Qualified Code(s): B15.9 - Hepatitis A without hepatic coma
[2018-07-24] MEDS ORDERED: Ibuprofen 400 MG TABLET PO PRN (21:01)
[2018-07-25] MEDS ORDERED: Piperacillin/Tazobactam 3.375 GM in 0.9 % Sodium Chloride Mini Bag 100 ML IVPB SCH
[2018-07-25] MEDS: *HR* Heparin 5,000 UNIT/ML VIAL SQ SCH (05:14)
[2018-07-25 05:39] LABS: INR 1.1; Prothrombin Time 12.6 Seconds (9.4-12.1)
[2018-07-25 05:57] LABS: BUN/Creatinine Ratio 6 (6-26); Blood Urea Nitrogen 5 mg/dL (6-20); Calcium 8.6 mg/dL (8.6-10.3); Carbon Dioxide 24 mEq/L (23-29); Chloride 108 mEq/L (98-107); Glucose 85 mg/dL (70-105); Osmolality,Calculated 283 (280-300); Potassium 3.9 mEq/L (3.5-5.1); Sodium 138 mEq/L (136-145); eGFR For Non-African Americans > 60 (> 60)
[2018-07-25 06:08] LABS: Alanine Aminotransferase > 500 Units/L (7-52); Albumin 3.5 g/dL (3.5-5.7); Alkaline Phosphatase 165 Units/L (34-104); Aspartate Amino Transferase 1861 Units/L (13-39); Bilirubin,Direct 2.9 mg/dL (0.0-0.2); Bilirubin,Indirect 0.8 mg/dL (0.0-1.2); Bilirubin,Total 3.7 mg/dL (0.3-1.0); Globulin 3.5 g/dL (2.4-3.5)
[2018-07-25 07:54] VITALS: BP 110/71
[2018-07-25 10:30] LABS: Basophils % 0.4 %; Eosinophils # 0.1 K/mcL (0.0-0.6); Hemoglobin 12.5 g/dL (11.5-15.4); Immature Granulocytes % 0.4 % (0-4); Lymphocytes % 38.7 %; Mean Corpuscular HGB Conc 31.3 g/dL (31.6-35.5); Mean Corpuscular Hemoglobin 28.3 pg (28.0-33.3); Mean Corpuscular Volume 90.5 fL (83.0-100.0); Mean Platelet Volume 11.2 fL (9.4-12.4); Monocytes # 0.3 K/mcL (0.0-1.3); Monocytes % 10.1 %; Neutrophils # 1.2 K/mcL (1.6-8.9); Platelet Count 166 K/mcL (140-400); Red Blood Count 4.42 M/mcL (3.82-4.97); Red Cell Distribution Width 12.9 % (11.5-14.5); Segmented Neutrophils % 48.4 %
[2018-07-25 10:56] LABS: Platelet Estimate Slight Decrease (Normal)
--- NOTE | 2018-07-25 10:56 | Discharge Summary ---
- NOTES TO OUTPATIENT PROVIDER Notes to Outpatient Provider: Patient was hospitalized with generalized weakness , nausea and vomiting and was diagnosed with acute hepatitis A. She is feeling much better and is tolerating oral diet. Liver enzymes are trending down. Her bilirubin remains slightly elevated at 3.7. Patient is doing well enough to be discharged home for continued recovery. Orders not resulted at time of discharge: Pending orders 07/23/18 21:57 Fecal Hemoccult [Occult Blood,Stool] [BF] Routine 07/25/18 10:15 CBC [Complete Blood Count] [HEME] Stat Date of Encounter: 07/25/18 Time of Encounter: 09:30 - Discharge Diagnosis (1) Hepatitis A Priority: Primary Status: Acute Qualifiers: Hepatic coma status: without hepatic coma Qualified Code(s): B15.9 - Hepatitis A without hepatic coma (2) Transaminitis Priority: Secondary Status: Acute (3) DVT prophylaxis Priority: Secondary Status: Acute (4) Hypokalemia Priority: Secondary Status: Resolved Hospital course: Ms. Kamara is a 32 year old female Patient with no significant past medical history besides laparoscopic cholecystectomy last year who was hospitalized with generalized weakness, nausea and vomiting and was diagnosed with acute hepatitis A. She is feeling much better and is tolerating oral diet. Liver enzymes are trending down. Her bilirubin remains slightly elevated at 3.7. Patient is doing well enough to be discharged home for continued recovery. Discharge discussed with: patient, nurse - Time Spent with Patient Total time spent providing and/or coordinating discharge services: Less than 30 minutes (25 min) - Discharge Medications Home Medications: Venlafaxine HCl [Venlafaxine HCl ER] 75 mg PO HS 09/25/17 [History] Cetirizine HCl [All Day Allergy] 10 mg PO DAILY PRN 07/23/18 [History] Allergies/Adverse Reactions: 3 Allergy/AdvReac Type Severity Reaction Status Date / Time No Known Allergies Allergy Verified 07/23/18 18:06 Date of admission: 07/23/18 20:28 Primary care physician: Neymar Coronel MD Consults: 07/23/18 20:16 Consult to Gastroenterology [CONS] Stat Consulting Provider: Daniel Muhammad Reason for Consult: Transaminitis Call Completed: No Discharging clinician: Anibal Dietrich Anticipated date of discharge: 07/25/18 - Constitutional Vitals: Temp Pulse Resp BP Pulse Ox 98 F 57 16 110/71 96 07/25/18 07:51 07/25/18 07:51 07/25/18 07:51 07/25/18 07:51 07/25/18 07:51 General appearance: Present: cooperative, A&O X 3, answers questions appropriately Exam: . - Eye Eye exam: Present: scleral icterus - Respiratory Respiratory exam: Present: CTAB. Absent: accessory muscle use, rales, rhonchi, wheezes - Cardiovascular Cardiovascular exam: Present: RRR, +S1, +S2. Absent: diastolic murmur, gallop, rubs, systolic murmur - GI/Abdominal GI/Abdominal exam: Present: normal bowel sounds, soft, no peritoneal signs. Absent: distended, tenderness - Skin Additional comments: Jaundice - Patient Status Disposition: Home, Self-Care Condition: Good Functional capacity at discharge: independent ambulation Overall status at discharge: patient is progressing back to baseline - Discharge Instructions Follow Up With: Neymar Coronel MD [Primary Care Provider] - (in 1-2 weeks) Additional Instructions: Return to the ER if you develop any worsening abdominal pain, nausea or vomiting. - Diet and Activity Activity: increase activity as tolerated Diet: low salt diet
== END 2018-07-25 12:15 | disposition home or self-care (01) ==
LOC: 3ANU 15:39 → EMEROOARM 15:39 → SUATTDRO 20:28 → 3ANU 22:30
PROVIDERS: ADMIT Internal Medicine; ATTEND Internal Medicine